=== PATIENT | female | born 1970 | race Caucasian/White ===

== ENCOUNTER 2021-04-19 05:36 | Outpatient (REF) | payer MEDICAID, SELFPAY ==
--- NOTE | ~2021-04-19 | XR_ITS ---
EXAMINATION: XR PELVIS XR HIP, LEFT CLINICAL INFORMATION: Pain. COMPARISON: Left hip and pelvic radiographs dated 10/22/2019 TECHNIQUE: AP view of the pelvis. AP and frog-leg lateral views of the left hip. FINDINGS: No acute fracture or dislocation. Probable healed right pubic rami fractures, unchanged. Severe left hip joint space narrowing with bony remodeling, subchondral sclerosis, and subchondral cystic change as well as prominent marginal osteophytes. Findings are significantly increased when compared to the prior radiographs. Mild right hip joint space narrowing with small marginal osteophytes, unchanged. XR/XR pelvis 1-2V IMPRESSION: 1. Severe left hip osteoarthritis, significantly progressed when compared to the prior radiographs. 2. Mild right hip posterior arthritis, unchanged.
--- NOTE | ~2021-04-19 | XR_ITS ---
EXAMINATION: XR PELVIS XR HIP, LEFT CLINICAL INFORMATION: Pain. COMPARISON: Left hip and pelvic radiographs dated 10/22/2019 TECHNIQUE: AP view of the pelvis. AP and frog-leg lateral views of the left hip. FINDINGS: No acute fracture or dislocation. Probable healed right pubic rami fractures, unchanged. Severe left hip joint space narrowing with bony remodeling, subchondral sclerosis, and subchondral cystic change as well as prominent marginal osteophytes. Findings are significantly increased when compared to the prior radiographs. Mild right hip joint space narrowing with small marginal osteophytes, unchanged. XR/XR hip LT min 2V IMPRESSION: 1. Severe left hip osteoarthritis, significantly progressed when compared to the prior radiographs. 2. Mild right hip posterior arthritis, unchanged.
== END 2021-04-19 05:37 | disposition home or self-care (01) ==
LOC: HO.HOSX 05:36
PROVIDERS: Visit Provider Physician Assistant
DX: M16.52 Unilateral post-traumatic osteoarthritis, left hip (principal)
CPT/HCPCS: 72170; 73502; 99212

== ENCOUNTER → 2021-05-14 09:46 | Outpatient (BNVA) | payer MEDICAID, SELFPAY | PROVIDERS: PCP Family Medicine; Visit Provider Orthopaedic Surgery | DX: M17.12 Unilateral primary osteoarthritis, left knee (principal); M16.52 Unilateral post-traumatic osteoarthritis, left hip | CPT/HCPCS: 80048; 80307; 85025 ==

== ENCOUNTER → 2021-05-28 | Outpatient (REF) | payer MEDICAID, SELFPAY ==
--- NOTE | 2021-05-14 11:23 | ECG_ITS ---
Test Reason : PREPROC EXAM Blood Pressure : / mmHG Vent. Rate : 078 BPM Atrial Rate : 078 BPM P-R Int : 138 ms QRS Dur : 086 ms QT Int : 368 ms P-R-T Axes : 055 014 036 degrees QTc Int : 419 ms Normal sinus rhythm Normal ECG When compared with ECG of 07-SEP-2017 21:07, No significant change was found Referred By: Usman Johnson Electronically Signed By:SELIN ROWE MD
== END ==
LOC: HO.CARD
PROVIDERS: PCP Family Medicine; Visit Provider Orthopaedic Surgery
DX: Z01.810 Encounter for preprocedural cardiovascular examination (principal); M16.12 Unilateral primary osteoarthritis, left hip
CPT/HCPCS: 93005

== ENCOUNTER 2022-01-14 12:28 | Outpatient (REF) | payer MEDICAID, SELFPAY ==
--- NOTE | ~2022-01-14 | XR_ITS ---
EXAMINATION: XR PELVIS CLINICAL INFORMATION: Pain COMPARISON: Pelvic radiographs 04/19/2021 TECHNIQUE: AP view of the pelvis. XR/XR pelvis 1-2V FINDINGS/IMPRESSION: No acute fracture or dislocation. Remote appearing fracture deformity of the right superior and inferior pubic ramus. Advanced degenerative changes of the left hip with complete loss of joint space, subchondral cystic change and bony remodeling of the femoral head with mild lateral subluxation with respect to the acetabulum. Left hip joint space is maintained. Transitional anatomy with a broad-based right L5 transverse process pseudoarticulating with the sacrum. Soft tissues are unremarkable.
== END 2022-01-14 12:29 | disposition home or self-care (01) ==
LOC: HO.HOSX 12:28
PROVIDERS: PCP Family Medicine; Visit Provider Orthopaedic Surgery
DX: M16.52 Unilateral post-traumatic osteoarthritis, left hip (principal); M25.552 Pain in left hip; Z88.6 Allergy status to analgesic agent; Z88.3 Allergy status to other anti-infective agents; Z88.0 Allergy status to penicillin
CPT/HCPCS: 72170; 99212

== ENCOUNTER 2022-04-16 | Outpatient (REF) | payer MEDICAID, SELFPAY ==
--- NOTE | 2022-04-16 | ECG_ITS ---
Test Reason : PREOP Blood Pressure : / mmHG Vent. Rate : 084 BPM Atrial Rate : 084 BPM P-R Int : 128 ms QRS Dur : 090 ms QT Int : 350 ms P-R-T Axes : 056 008 053 degrees QTc Int : 413 ms Sinus rhythm with Premature atrial complexes Minimal voltage criteria for LVH, may be normal variant ( [place] product ) Borderline ECG When compared with ECG of 14-MAY-2021 11:29, Premature atrial complexes are now Present Referred By: Juan Ramon Henson Electronically Signed By:SELIN ROWE MD
[2022-04-16 12:10] VITALS: BMI 25.9
[2022-04-16 12:19] VITALS: BP 129/81; PULSE 82; RESP 20; O2SAT 98
--- NOTE | 2022-04-16 12:30 | P.CONAN_ITS ---
HPI - Anesthesia Eval Consult details Narrative: Pt no show DOS. 51yo F for Left Hip Total Replacement 05/07/22 Needle phobia Previously scheduled but required rehab after fentanyl OD. Drug screen DOS ordered. [facility] Active Problems Active Problems: All Active Problems (Updated 04/16/22 @ 12:27 by Geri Ramos RN) Unilateral post-traumatic osteoarthritis, left hip (Acute) Past Medical History Medical History (Updated 05/07/22 @ 23:22 by ADI Montiel) Arthritis Borderline diabetic History of coma Iron deficiency anemia Family History Family history of problems with anesthesia: No Surgical History Surgical History (Updated 04/16/22 @ 12:07 by Geri Ramos RN) History of abdominoplasty History of right knee surgery History of surgery Hx of bilateral breast reduction surgery Hx of gastric bypass History of Problems with Anesthesia: No Social History Social History (Updated 04/19/21 @ 10:16 by JOSE MARIA Stephenson) Household Members Other:: Friend Are you a primary healthcare representative to a significant other at home: No Do you presently have visiting nurse or other home services: No Patient Tobacco Use Status: Current everyday Tobacco user Tobacco use type: Cigarette Cigarette Packs Per Day: 0.5 Cigarettes Per Day: 10.0 Years Smoked: 35 Second Hand Smoke Exposure: No Advance Directives: No Advance Directives Information Provided: No Current occupational status: disabled Current occupation: rt hand Narrative Narrative: No recent illness No CP/SOB at rest. Activity limited to severe hip pain. Meds Allergies Allergy/AdvReac Type Severity Reaction Status Date / Time codeine Allergy Unknown Gastrointestinal Unverified 04/16/22 12:06 [From TYLENOL-CODEINE #3] Upset NSAIDS (Non-Steroidal Allergy Unknown Nausea and Unverified 04/16/22 12:06 Anti-Inflamma Vomiting [NSAIDS (NON-STEROIDAL ANTI-INFLAMMA] Penicillins [PENICILLINS] Allergy Unknown Hives Unverified 04/16/22 12:06 Home Medications Medication Instructions Recorded Confirmed Last Taken Type ferrous sulfate 325 mg (65 mg 1 tab PO BID 04/16/22 04/16/22 Unknown History iron) tablet methocarbamol 500 mg tablet 1,000 mg PO QID 05/02/22 Unknown History Exam Exam Date and Time: April 16, 2022 1230 Height,Weight and Vital Signs: Height 5 ft 2 in Weight 64.41 kg Last Vital Signs Pulse 82 04/16/22 12:19 Resp 20 04/16/22 12:19 BP 129/81 04/16/22 12:19 Pulse Ox 98 04/16/22 12:19 O2 Del Method 04/16/22 12:19 Pertinent Lab Results Pertinent Lab Results: Lab Results 04/16/22 04/16/22 04/16/22 Range/Units 13:11 13:11 Unknown WBC 5.2 (4.8-10.8) X10*3/uL RBC 4.92 (4.20-5.50) X10*6/uL Hgb 12.3 (12.0-16.0) g/dl Hct 40.1 (37.0-47.0) % MCV 81.5 (80.0-98.0) fL MCH 25.0 L (27.0-33.0) pg MCHC 30.7 L (31.0-35.0) g/dl RDW 26.4 H (11.0-16.0) % Plt Count 312 (160-400) X10*3/uL MPV 8.6 L (9.4-12.3) fL Immature Gran % (Auto) 0.2 (0.0-0.4) % Neut % (Auto) 47.4 (45-73) % Lymph % (Auto) 41.0 H (20-40) % [place] % (Auto) 8.2 (2-11) % Eos % (Auto) 1.9 (0-4) % Baso % (Auto) 1.3 (0-2) % Lymph # (Auto) 2.1 (1.2-4.9) X10*3/uL [place] # (Auto) 0.4 (0.1-1.2) X10*3/uL Eos # (Auto) 0.1 (0.0-0.4) X10*3/uL Baso # (Auto) 0.1 (0.0-0.2) X10*3/uL Abs Immat Gran (auto) 0.01 (0.00-0.03) X10*3/uL Absolute Neuts (auto) 2.5 (2.0-8.3) x10*3/uL Absolute Nucleated RBC 0.000 (0.0-0.012) X10*3/uL Nucleated RBC % (auto) 0.0 (0.0-0.2) /100WBC Sodium 142 (135-145) mmol/L Potassium 5.0 (3.3-5.1) mmol/L Chloride 105 (96-108) mmol/L Carbon Dioxide 27 (22-29) mmol/L Anion Gap 15 (12-20) BUN 7 L (9-16) mg/dL Creatinine 0.67 (0.5-1.4) mg/dL Estim Creat Clear Calc 87.5 Estimated GFR > 60 Random Glucose 84 (60-115) mg/dL Calcium 9.3 (8.4-10.2) mg/dL Nasal Screen MRSA (PCR) NEGATIVE (Negative) Nasal S. aureus Screen NEGATIVE (Negative) Nasal MRSA/S.aureus Interp SEE NOTE Ur Barbiturates Screen (Not Detect) Blood Type Antibody Screen 05/02/22 05/02/22 Range/Units 13:30 13:33 WBC (4.8-10.8) X10*3/uL RBC (4.20-5.50) X10*6/uL Hgb (12.0-16.0) g/dl Hct (37.0-47.0) % MCV (80.0-98.0) fL MCH (27.0-33.0) pg MCHC (31.0-35.0) g/dl RDW (11.0-16.0) % Plt Count (160-400) X10*3/uL MPV (9.4-12.3) fL Immature Gran % (Auto) (0.0-0.4) % Neut % (Auto) (45-73) % Lymph % (Auto) (20-40) % [place] % (Auto) (2-11) % Eos % (Auto) (0-4) % Baso % (Auto) (0-2) % Lymph # (Auto) (1.2-4.9) X10*3/uL [place] # (Auto) (0.1-1.2) X10*3/uL Eos # (Auto) (0.0-0.4) X10*3/uL Baso # (Auto) (0.0-0.2) X10*3/uL Abs Immat Gran (auto) (0.00-0.03) X10*3/uL Absolute Neuts (auto) (2.0-8.3) x10*3/uL Absolute Nucleated RBC (0.0-0.012) X10*3/uL Nucleated RBC % (auto) (0.0-0.2) /100WBC Sodium (135-145) mmol/L Potassium (3.3-5.1) mmol/L Chloride (96-108) mmol/L Carbon Dioxide (22-29) mmol/L Anion Gap (12-20) BUN (9-16) mg/dL Creatinine (0.5-1.4) mg/dL Estim Creat Clear Calc Estimated GFR Random Glucose (60-115) mg/dL Calcium (8.4-10.2) mg/dL Nasal Screen MRSA (PCR) (Negative) Nasal S. aureus Screen (Negative) Nasal MRSA/S.aureus Interp Ur Barbiturates Screen Not Detected (Not Detect) Blood Type O Positive Antibody Screen NEGATIVE Narrative Narrative: EKG 04/2022 Vent. Rate : 084 BPM ? ? Atrial Rate : 084 BPM ?? P-R Int : 128 ms? QRS Dur : 090 ms ? ? QT Int : 350 ms ? ? ? P-R-T Axes : 056 008 053 degrees ?? QTc Int : 413 ms ? Sinus rhythm with Premature atrial complexes Minimal voltage criteria for LVH, may be normal variant ( [place] product ) Borderline ECG When compared with ECG of 14-MAY-2021 11:29, Premature atrial complexes are now Present Airway Loose/Missing/Broken Teeth: Yes (#7 missing) Heart: RRR Lungs: CTAB Assessment and Plan Assessment Anesthesia Assessment: Anesthesia Plan Discussed, Smoking Cess. Discussed and PAT Visit Final Anesthetic Review Family History of Problems with Anesthesia: No History of Problems with Anesthesia: No
[2022-04-16 13:12] LABS: MANUAL DIFF FLAG NO
[2022-04-16 13:22] LABS: Basophils Absolute Auto 0.1 X10*3/uL (0.0-0.2); Basophils Percent Auto 1.3 % (0-2); Eosinophils Absolute Auto 0.1 X10*3/uL (0.0-0.4); Eosinophils Percent Auto 1.9 % (0-4); Hematocrit 40.1 % (37.0-47.0); Hemoglobin 12.3 g/dl (12.0-16.0); Imm Gran Abs Auto 0.01 X10*3/uL (0.00-0.03); Imm Gran Pct Auto 0.2 % (0.0-0.4); Lymphocytes Absolute Auto 2.1 X10*3/uL (1.2-4.9); Mean Corpuscular HGB Conc 30.7 g/dl (31.0-35.0); Mean Corpuscular Volume 81.5 fL (80.0-98.0); Mean Platelet Volume 8.6 fL (9.4-12.3); Monocytes Absolute Auto 0.4 X10*3/uL (0.1-1.2); Monocytes Percent Auto 8.2 % (2-11); Neutrophils Absolute Auto 2.5 x10*3/uL (2.0-8.3); Neutrophils Percent Auto 47.4 % (45-73); Platelet Count 312 X10*3/uL (160-400); Red Blood Count 4.92 X10*6/uL (4.20-5.50); Red Cell Distribution Width 26.4 % (11.0-16.0); White Blood Count 5.2 X10*3/uL (4.8-10.8)
[2022-04-16 13:56] LABS: Anion Gap 15 (12-20); Blood Urea Nitrogen 7 mg/dL (9-16); Calcium 9.3 mg/dL (8.4-10.2); Carbon Dioxide 27 mmol/L (22-29); Chloride 105 mmol/L (96-108); Creatinine Clr Calc Pharmacy 87.5; Estimated Glomerular Filt Rate > 60; Glucose Random 84 mg/dL (60-115); Sodium 142 mmol/L (135-145)
[2022-04-16 16:22] LABS: MRSA Nasal PCR NEGATIVE (Negative); SA Nasal PCR NEGATIVE (Negative)
[2022-05-02 14:48] LABS: Barbiturates, Urine Not Detected (Not Detect)
== END 2022-04-16 00:01 | disposition home or self-care (01) ==
LOC: HO.PAT
PROVIDERS: Physician Assistant; Visit Provider Orthopaedic Surgery
DX: Z01.818 Encounter for other preprocedural examination (principal); M16.52 Unilateral post-traumatic osteoarthritis, left hip
CPT/HCPCS: 36415; 80048; 80307; 85025; 86850; 86900; 86901; 87640; 87641; 93005; 99212

== ENCOUNTER 2022-05-02 13:14 | Outpatient (REF) | payer MEDICAID, SELFPAY | END 2022-05-02 13:15 | disposition home or self-care (01) | LOC: HO.LAB 13:14 | PROVIDERS: Absent Provider Orthopaedic Surgery; Visit Provider Physician Assistant | DX: M16.52 Unilateral post-traumatic osteoarthritis, left hip (principal) | CPT/HCPCS: 99212 ==

== ENCOUNTER 2022-05-07 14:44 | Emergency (ER) | payer MEDICAID, SELFPAY ==
--- NOTE | ~2022-05-07 | CT_ITS ---
EXAMINATION: HEAD CT WITHOUT CONTRAST CERVICAL SPINE CT WITHOUT CONTRAST CLINICAL INFORMATION: Fall COMPARISON: CT head 05/28/2017. TECHNIQUE: Contiguous axial imaging of the head was performed without the administration of IV contrast. Axial multidetector volumetric images were also performed through the cervical spine without contrast. Multiplanar reconstructed images in coronal and sagittal orientations were submitted. DOSE: 1081 mGy-cm FINDINGS: HEAD: Head is rotated in positioning. There is no evidence of acute intracranial hemorrhage or edematous territorial infarction. No abnormal mass-effect or midline shift. No extra-axial fluid collections. Campbell to white matter differentiation is well preserved. Commensurate prominence of the ventricles and sulci is compatible with generalized parenchymal volume loss. There is mild periventricular and subcortical white matter hypoattenuation, most likely representing microangiopathic disease The soft tissues and osseous structures are normal. The sinuses and mastoid air cells are clear. CERVICAL SPINE: Craniocervical and atlantoaxial articulation is maintained. Mild anterolisthesis of C2 on C3. There is osseous fusion of the C4-C5 vertebral bodies. No acute fractures seen. Multilevel spondylosis in cervical spine. More prominent changes of severe C3-C4, C5-C6, C6-C7 disc degeneration. Multilevel facet degeneration. No significant prevertebral soft tissue swelling. No suspicious thyroid findings. No suspicious findings in the visualized lung apices. CT/CT head/brain wo con IMPRESSION: 1. No CT evidence of acute intracranial hemorrhage or edematous territorial infarction. 2. No CT evidence of acute fracture of the cervical spine. 3. Severe cervical spondylosis with chronic changes as detailed above.
--- NOTE | ~2022-05-07 | CT_ITS ---
EXAMINATION: CT CHEST, ABDOMEN AND PELVIS WITH CONTRAST CLINICAL INFORMATION: Fall. COMPARISON: None TECHNIQUE: Multidetector volumetric CT imaging of the chest, abdomen and pelvis was obtained after the administration of 50 mL of intravenous Ultravist without immediate adverse reactions. [This CT examination was performed using dose optimization techniques as appropriate, variously including the following: *Automated exposure control. *Adjustment of mA and/or kV according to patient size (this includes techniques or standardized protocols for targeted exams where dose is matched to indication/reason for exam; i.e. extremities or head). *Use of iterative reconstruction technique]. DLP: 259 + 549 mGy-cm FINDINGS: CT CHEST: Lungs: Mild centrilobular emphysematous change of the lungs. No acute airspace disease. No interstitial lung disease. No bronchiectasis. No suspicious lung nodules. Mediastinum: No mediastinal mass or significant lymphadenopathy. The heart size is normal. No pericardial effusion. There is a hiatal hernia. Surgical sutures at the GE junction and the proximal stomach. Pleura: There is no pleural effusion. No pleural mass or thickening. Axilla: No lymphadenopathy. CT ABDOMEN AND PELVIS: Liver, Gallbladder and Biliary Tree: The liver is normal in size, shape, and attenuation. No focal hepatic lesion or biliary ductal dilatation is present. The gallbladder is unremarkable with no evidence of radiopaque gallstones, gallbladder wall thickening, or obvious pericholecystic inflammatory changes. Pancreas: No acute change of the pancreas. No mass. No pancreatic duct dilatation. Spleen: Spleen normal in size and contour. No focal lesion. Adrenal Glands: Adrenal glands are normal in size. No focal mass. Kidneys and Ureters: The kidneys are normal in size, shape, and attenuation. No hydronephrosis, hydroureter, or calculi seen. No perinephric stranding. Bladder: Unremarkable. Gastrointestinal Tract: There is a hiatal hernia. Surgical sutures at the GE junction and proximal stomach. No acute change of the bowel. No bowel obstruction. No bowel wall thickening or edema. The appendix is normal. [id number] volume of stool in the colon. Mesentery: No focal inflammation. No free fluid. No free air. Abdominal Wall: No significant hernia is appreciated. Lymph Nodes: Normal. Vascular: Vascular calcifications of the aorta and iliac arteries. There is no aneurysm. Pelvic Viscera: Unremarkable. OSSEOUS STRUCTURES: No acute osseous abnormality. Multilevel degenerative spondylosis of the spine. Marked disc height narrowing and endplate sclerosis and irregularity of the endplate at L3-L4. There is bony ankylosis of the inferior right sacroiliac joint. Old healed fracture with residual deformity of the right superior and inferior pubic ramus. Severe degenerative arthrosis of the left hip. There is [id number] contact between the femoral head and acetabulum. There is flattening of the weightbearing portion of the femoral head and acetabulum with significant subchondral cystic changes and osteosclerosis. No acute fracture of the ribs. There are multiple old healed bilateral rib fractures. Old healed fracture of the posterior left 11th rib. Chronic displaced nonhealed fracture of the posterior left 9th and 10th ribs. Old nondisplaced fracture of the right anterior 5th rib. Old fracture with callus formation of the posterior right 10th rib. CT/CT abdomen pelvis wo con IMPRESSION: 1. No acute abnormality of the chest, abdomen or pelvis. 2. Severe arthrosis of the left hip. Marked degenerative change of the L3-L4 disc. 3. Postsurgical changes at the GE junction. 4. Old healed fractures of the right inferior-superior pubic ramus. Partial bony fusion of the inferior right sacroiliac joint. Multiple old bilateral rib fractures.
--- NOTE | ~2022-05-07 | CT_ITS ---
EXAMINATION: HEAD CT WITHOUT CONTRAST CERVICAL SPINE CT WITHOUT CONTRAST CLINICAL INFORMATION: Fall COMPARISON: CT head 05/28/2017. TECHNIQUE: Contiguous axial imaging of the head was performed without the administration of IV contrast. Axial multidetector volumetric images were also performed through the cervical spine without contrast. Multiplanar reconstructed images in coronal and sagittal orientations were submitted. DOSE: 1081 mGy-cm FINDINGS: HEAD: Head is rotated in positioning. There is no evidence of acute intracranial hemorrhage or edematous territorial infarction. No abnormal mass-effect or midline shift. No extra-axial fluid collections. Campbell to white matter differentiation is well preserved. Commensurate prominence of the ventricles and sulci is compatible with generalized parenchymal volume loss. There is mild periventricular and subcortical white matter hypoattenuation, most likely representing microangiopathic disease The soft tissues and osseous structures are normal. The sinuses and mastoid air cells are clear. CERVICAL SPINE: Craniocervical and atlantoaxial articulation is maintained. Mild anterolisthesis of C2 on C3. There is osseous fusion of the C4-C5 vertebral bodies. No acute fractures seen. Multilevel spondylosis in cervical spine. More prominent changes of severe C3-C4, C5-C6, C6-C7 disc degeneration. Multilevel facet degeneration. No significant prevertebral soft tissue swelling. No suspicious thyroid findings. No suspicious findings in the visualized lung apices. CT/CT cervical spine wo con IMPRESSION: 1. No CT evidence of acute intracranial hemorrhage or edematous territorial infarction. 2. No CT evidence of acute fracture of the cervical spine. 3. Severe cervical spondylosis with chronic changes as detailed above.
[2022-05-07 15:03] VITALS: BP 128/60; PULSE 86; BMI 25.6
--- NOTE | 2022-05-07 15:40 | PC.NURSE ---
Pt refuse vital signs.
--- NOTE | 2022-05-07 15:41 | PC.NURSE ---
Pt reports unable to use bedpan. Ambulates to the bathroom with minimal assistance.
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
[2022-05-07 16:37] VITALS: PULSE 80; O2SAT 98
[2022-05-07] MEDS: traMADoL HCL 50 MG TABLET PO (22:48)
--- NOTE | 2022-05-07 22:53 | PC.NURSE ---
Call out to [facility] @[id number] spoke to Ping, regarding transport. [facility] will be here within the hour
== END 2022-05-08 00:17 | disposition home or self-care (01) ==
PROVIDERS: Emergency Provider Internal Medicine; PCP Family Medicine
DX: M54.16 Radiculopathy, lumbar region (principal); M16.12 Unilateral primary osteoarthritis, left hip; M25.552 Pain in left hip; Z91.81 History of falling
CPT/HCPCS: 70450; 71250; 72125; 74176; 99284

== ENCOUNTER 2022-05-13 08:24 | Outpatient (REF) | payer MEDICAID, SELFPAY ==
[2022-05-13 08:45] LABS: MANUAL DIFF FLAG NO
[2022-05-13 09:23] LABS: Basophils Absolute Auto 0.1 X10*3/uL (0.0-0.2); Basophils Percent Auto 0.5 % (0-2); Eosinophils Absolute Auto 0.1 X10*3/uL (0.0-0.4); Eosinophils Percent Auto 0.9 % (0-4); Hematocrit 43.3 % (37.0-47.0); Imm Gran Abs Auto 0.05 X10*3/uL (0.00-0.03); Imm Gran Pct Auto 0.5 % (0.0-0.4); Lymphocytes Absolute Auto 2.1 X10*3/uL (1.2-4.9); Mean Corpuscular Hemoglobin 25.8 pg (27.0-33.0); Mean Corpuscular Volume 86.1 fL (80.0-98.0); Monocytes Absolute Auto 0.6 X10*3/uL (0.1-1.2); Monocytes Percent Auto 5.8 % (2-11); Neutrophils Percent Auto 73.3 % (45-73); Platelet Count 287 X10*3/uL (160-400); Red Blood Count 5.03 X10*6/uL (4.20-5.50); Red Cell Distribution Width 25.9 % (11.0-16.0); White Blood Count 10.9 X10*3/uL (4.8-10.8)
[2022-05-13 09:49] LABS: Anion Gap 17 (12-20); Blood Urea Nitrogen 9 mg/dL (9-16); Calcium 9.1 mg/dL (8.4-10.2); Carbon Dioxide 26 mmol/L (22-29); Chloride 104 mmol/L (96-108); Estimated Glomerular Filt Rate > 60; Glucose Random 93 mg/dL (60-115); Potassium 3.7 mmol/L (3.3-5.1); Sodium 143 mmol/L (135-145)
[2022-05-13 11:03] LABS: Amphetamine Screen Urine Not Detected (Not Detect); Barbiturates, Urine Not Detected (Not Detect); Benzodiazepines Screen Urine Not Detected (Not Detect); Cannabinoid Screen Urine Not Detected (Not Detect); Cocaine Screen Urine POSITIVE (Not Detect); Fentanyl, urine Not Detected (Not Detect); Opiate Screen Urine Not Detected (Not Detect); Phencyclidine Screen Urine Not Detected (Not Detect)
== END 2022-05-13 08:25 | disposition home or self-care (01) ==
LOC: HO.LAB 08:24
PROVIDERS: Visit Provider Orthopaedic Surgery
DX: Z01.818 Encounter for other preprocedural examination (principal); M16.52 Unilateral post-traumatic osteoarthritis, left hip
CPT/HCPCS: 80048; 80307; 85025